=== PATIENT | female | born 1940 | race Caucasian/White ===

== ENCOUNTER 2018-10-28 09:02 | Day surgery (SDC) | payer MEDICARE, MEDICAID ==
[~2018-10-28 09:02] MED LIST: Bupivacaine 0.25%/EPINEPHrine 1:200,000 10 ML SDV INJECT ONE; Bupivacaine 25%/EPINEPHrine/PF 30 ML ONE; Lactated Ringers 1,000 ML IV SCH; Sodium Chloride 0.9% 10 ML SDV IV PRN; Sodium Chloride 0.9% 10 ML Syringe FLUSH PRN; Sodium Chloride 0.9% 2.5 ML Syringe FLUSH PRN; ceFAZolin 2 GM in Premix Bag 1 BAG IV ONE
--- NOTE | 2018-10-28 10:34 | PCM.PREANE ---
Preanesthetic Assessment - Anesthesia/Transfusion/Family Hx Anesthesia History: Prior Anesthesia Reaction Type of Anesthesia Reaction: Excessive Nausea/Vomiting Family History of Anesthesia Reaction: No Transfusion History: No Prior Transfusion(s) - Review of Systems General: No Symptoms Pulmonary: No Symptoms Cardiovascular: No Symptoms Gastrointestinal: No Symptoms Neurological: No Symptoms Other: Reports: None - Physical Assessment NPO Status Date: 10/27/18 Height: 5 ft 1 in Weight: 66.678 kg ASA Class: 3 Mental Status: Alert & Oriented x3 Airway Class: Mallampati = 2 Dentition: Reports: Normal Dentition ROM/Head Extension: Full Lungs: Clear to Auscultation, Normal Respiratory Effort Cardiovascular: Regular Rate, Regular Rhythm - Allergies Allergies/Adverse Reactions: Allergies Allergy/AdvReac Type Severity Reaction Status Date / Time codeine Allergy Other Verified 10/25/18 12:21 - Blood Blood Available: No - Anesthesia Plan Pre-Op Medication Ordered: None - Acknowledgements Anesthesia Type Planned: General Anesthesia Pt an Appropriate Candidate for the Planned Anesthesia: Yes Alternatives and Risks of Anesthesia Discussed w Pt/Guardian: Yes Pt/Guardian Understands and Agrees with Anesthesia Plan: Yes Additional Comments: PMH: had remote hx of AMI in 1994, no stent, no CABG. Has peripheral artery stents (5) placed in L illiac artery last year. On plavix and aspirin for the illiac stents. Has HTN, HLD, and is a smoker. 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: Musculoskeletal History: Reports: Osteoarthritis Neurological History: Reports: None Psychiatric History: Reports: None Endocrine/Metabolic History: Reports: None Hematologic History: Reports: Anticoagulation Therapy Immunologic History: Reports: None Oncologic (Cancer) History: Reports: Malignant Melanoma Dermatologic History: Reports: Melanoma - Past Surgical History Head Surgeries/Procedures: Reports: None Cardiovascular Surgical History: Reports: Coronary Artery Stent Respiratory Surgical History: Reports: None GI Surgical History: Reports: None Female Surgical History: Reports: Hysterectomy Endocrine Surgical History: Reports: None Neurological Surgical History: Reports: None Musculoskeletal Surgical History: Reports: Knee Replacement Other Musculoskeletal Surgeries/Procedures:: rt total knee replacement Dermatological Surgical History: Reports: Skin Biopsy - SUBSTANCE USE Smoking Status *Q: Current Every Day Smoker Tobacco Use Within Last Twelve Months: Cigarettes Recreational Drug Use History: No - HOME MEDS Home Medications: Home Meds Aspirin [Low Dose Aspirin EC] 81 mg PO DAILY 10/25/18 [History] Carvedilol 12.5 mg PO BID 10/25/18 [History] Cetirizine [ZyrTEC] 10 mg PO DAILY 10/25/18 [History] Clopidogrel [Plavix] 75 mg PO DAILY 10/25/18 [History] Losartan Potassium 100 mg PO DAILY 10/25/18 [History] Rosuvastatin Calcium 20 mg PO DAILY 10/25/18 [History] amLODIPine Besylate [Norvasc] 10 mg PO DAILY 10/25/18 [History] - CURRENT (IN HOUSE) MEDS Current Meds: Current Medications Lactated Ringer's (Ringers, Lactated) 1,000 mls @ 125 mls/hr IV ASDIRECTED VAN Sodium Chloride (Saline Flush) 10 ml FLUSH ASDIRECTED PRN PRN Reason: Keep Vein Open Sodium Chloride (Saline Flush) 2.5 ml FLUSH ASDIRECTED PRN PRN Reason: Keep Vein Open Sodium Chloride (Normal Saline) 10 ml IV ASDIRECTED PRN PRN Reason: IV Use Discontinued Medications Bupivacaine HCl/Epinephrine Bitart (Marcaine 0.25%/Epinephrine 1:200,000) 10 ml INJECT ONETIME ONE Stop: 10/28/18 06:01 Cefazolin Sodium/Dextrose 2 gm (/ Premix) 50 mls @ 100 mls/hr IV ONETIME ONE Stop: 10/28/18 06:29 Bupivacaine HCl/Epinephrine Bitart (Sensorc Mpf 0.25%-Epi [id number]) Confirm Administered Dose 30 mls @ as directed .ROUTE .STK-MED ONE Stop: 10/28/18 07:30
[2018-10-28] MEDS ORDERED: Lidocaine 2% 5 ML SDV ONE (11:28)
[2018-10-28] MEDS ORDERED: Midazolam 1 MG/ML 2 ML SDV ONE (11:29)
[2018-10-28] MEDS ORDERED: fentaNYL 100 MCG/2 ML SDV ONE (11:29)
[2018-10-28] MEDS ORDERED: Propofol 200 MG/20 ML SDV ONE (11:29)
[2018-10-28] MEDS ORDERED: ceFAZolin/Dextrose,Iso-Osmotic 2 GM/50 ML Duplex Bag IV ONE (11:49)
[2018-10-28] MEDS ORDERED: Ondansetron 4 MG/2 ML SDV ONE (11:58)
--- NOTE | 2018-10-28 13:12 | PCM.POSTAN ---
POST ANESTHESIA ASSESSMENT - MENTAL STATUS Mental Status: Alert, Oriented - RESPIRATORY Respiratory Status: Respiratory Rate WNL, Airway Patent, O2 Saturation Stable - CARDIOVASCULAR CV Status: Pulse Rate WNL, Blood Pressure Stable - GASTROINTESTINAL GI Status: No Symptoms - POST OP HYDRATION Hydration Status: Adequate & Stable
--- NOTE | 2018-10-28 13:12 | PCM48HPAN ---
Post Anesthesia Note - EVALUATION WITHIN 48HRS OF ANESTHETIC Vital Signs in Normal Range: Yes Patient Participated in Evaluation: Yes Respiratory Function Stable: Yes Airway Patent: Yes Cardiovascular Function Stable: Yes Hydration Status Stable: Yes Pain Control Satisfactory: Yes Nausea and Vomiting Control Satisfactory: Yes Mental Status Recovered: Yes Resp Rate: 15
[2018-10-28] MEDS ORDERED: Acetaminophen 325 MG Tab PO ONE (13:58)
--- NOTE | 2018-10-28 16:17 | PCM.OPNOTE ---
- General Post-Op/Procedure Note Date of Surgery/Procedure: 10/28/18 Operative Procedure(s): excision of left cheek malignancy - 5cm with 5cm intermediate repair Pre Op Diagnosis: left cheek malignancy Post-Op Diagnosis: Same Anesthesia Technique: Local, MAC Primary Surgeon: Karime Tavares Rn Ante Partum: Yael Jansen Complications: None Condition: Good Free Text/Narrative:: Intake & Output 10/28/18 10/28/18 10/28/18 07:59 15:59 23:59 Intake Total 750 Balance 750
--- NOTE | 2018-10-31 01:32 | OR ---
SURGEON: BIB KEITH MD DATE OF PROCEDURE: 10/28/2018 PREOPERATIVE DIAGNOSIS: Left cheek malignancy. POSTOPERATIVE DIAGNOSIS: Left cheek malignancy. PROCEDURE: 1. Excision of left cheek malignancy 5cm incision with subcutaneous mass of 4cm2 - likely recurrent melanoma 2. 5 cm intermediate repair. KILN FIRER HELPER: KRUNAL Guaman REASON FOR AND ROLE OF KILN FIRER HELPER: Retraction, prepping, draping, positioning and closure assistance. ANESTHESIA: Local, LMA. INDICATIONS: Ms. Stovall is a 78-year-old female seen today for a likely left cheek malignancy. She has previously had a melanoma excised here and unfortunately had recurrence of mass of the subcutaneous tissues that has been growing over the last 3 months. It is rapidly growing and causing her some discomfort. Risks and benefits of excision for diagnosis were discussed with her and she was in agreement to proceed. Risks were including, but not limited to, bleeding, infection, damage to underlying or overlying structures, possible need for future interventions, and possible scarring. PROCEDURE IN DETAIL: After informed consent was obtained and placed on the chart, the patient was brought to the operating theater and laid in the supine position. After adequate local LMA anesthesia was obtained, the area was prepped and draped, and a time-out was completed to confirm side and site. The previous skin graft was excised in an elliptical fashion and then dissection was carried circumferentially around the underlying fat. Once this was dissected free, meticulous hemostasis was obtained and she was then closed in an intermediate fashion for a total length of 5 cm. Once adequately closed, the wound was dressed with Steri-Strips. The patient tolerated this well. All counts and needles were correct at the end of the case. FOLLOWUP INSTRUCTIONS: The patient will see us in 1 week or sooner if any problems, questions, or concerns. HEGGTVARSHA / CARMEN /[id number] [place]
== END 2018-10-28 14:18 | disposition home or self-care (01) ==
LOC: MW.SDS 09:02
PROVIDERS: ATTEND Plastic Surgery
DX: C44.319 Basal cell carcinoma of skin of other parts of face (principal); I10 Essential (primary) hypertension; I25.10 Atherosclerotic heart disease of native coronary artery without angina pectoris; I25.2 Old myocardial infarction; E78.00 Pure hypercholesterolemia, unspecified; F17.210 Nicotine dependence, cigarettes, uncomplicated; Z88.5 Allergy status to narcotic agent; Z95.5 Presence of coronary angioplasty implant and graft; Z95.820 Peripheral vascular angioplasty status with implants and grafts; Z85.820 Personal history of malignant melanoma of skin; Z79.02 Long term (current) use of antithrombotics/antiplatelets; Z79.82 Long term (current) use of aspirin; Z79.899 Other long term (current) drug therapy
CPT/HCPCS: 11646; 12052; A9270; J0690; J2001; J2250; J2405; J2704; J3010; J7120; 00300